=== PATIENT | female | born 1990 | race Caucasian/White ===

== ENCOUNTER → 2020-10-30 17:49 | Outpatient (CLI) | payer MEDICAID, SELFPAY ==
[2020-10-30 18:19] LABS: Basophils % 0.4 % (0.1-2.0); Eosinophils # 0.1 K/mm3 (0.0-0.4); Eosinophils % 1.5 % (0.1-12.0); Hematocrit 43.6 % (37.0-47.0); Hemoglobin 14.3 g/dL (12.2-16.2); Lymphocytes # 2.4 K/mm3 (0.7-4.5); Lymphocytes % 25.1 % (10-50); Mean Corpuscular HGB Conc 32.8 g/dL (31.8-35.4); Mean Corpuscular Hemoglobin 28.3 pg (27.0-31.2); Mean Corpuscular Volume 86.2 fl (81-99); Mean Platelet Volume 8.6 fl (7.4-10.4); Monocytes # 0.7 K/mm3 (0.1-1.0); Monocytes % 7.4 % (1.7-9.3); Neutrophils # 6.2 K/mm3 (1.8-7.8); Neutrophils % 65.6 % (37.0-80.0); Platelet Count 327 K/mm3 (142-424); Red Blood Count 5.05 M/mm3 (4.20-5.40); Red Cell Distribution Width 13.8 % (11.5-17.5); White Blood Count 9.5 K/mm3 (4.8-10.8)
[2020-10-30 19:20] LABS: Alanine Aminotransferase 27 U/L (12-78); Albumin Level 4.9 g/dl (3.5-5.0); Albumin/Globulin Ratio 1.4 (1.1-1.8); Alkaline Phosphatase 90 U/L (38-126); Anion Gap 14.2 mEq/L (5-15); Aspartate Amino Transferase 33 U/L (14-36); Bilirubin,Total 0.4 mg/dl (0.2-1.3); Blood Urea Nitrogen 18 mg/dl (7-17); Calcium 10.3 mg/dl (8.4-10.2); Carbon Dioxide 27 mmol/L (22.0-30.0); Chloride 103 mmol/L (98-107); Chol/HDL Ratio 4.3 (1-3.5); Cholesterol 208 mg/dl (140-200); Estimated Glomerular Filt Rate 117 ml/min (>60); GFR (African American) 142 ML/MIN (>60); Globulin 3.6 g/dL (1.3-3.2); Glucose 86 mg/dl (74-100); HDL Cholesterol 48 mg/dl (40-60); Potassium 4.2 mmoL/L (3.5-5.1); Sodium 140 mmol/L (136-145); Total Protein,Serum 8.5 g/dl (6.3-8.2); Triglycerides 135 mg/dl (30-150); VLDL Cholesterol 27 mg/dL (0-40)
[2020-10-30 19:36] LABS: 25-OH Vitamin D, Total 22.7 ng/mL (30-100)
[2020-10-30 19:37] LABS: Free T4 (Free Thyroxine) 1.08 ng/dl (0.78-2.19)
[2020-10-30 19:51] LABS: Thyroid Stimulating Hormone 1.26 uIU/mL (0.465-4.68)
== END ==
PROVIDERS: Visit Provider Physician Assistant
DX: Z00.00 Encounter for general adult medical examination without abnormal findings (principal); I10 Essential (primary) hypertension; E55.9 Vitamin D deficiency, unspecified; Z79.899 Other long term (current) drug therapy
CPT/HCPCS: 80053; 80061; 82306; 84439; 84443; 85025

== ENCOUNTER → 2020-11-06 08:11 | Outpatient (CLI) | payer MEDICAID, SELFPAY ==
--- NOTE | 2020-11-06 08:11 | US_ITS ---
PROCEDURE: US ABDOMEN LIMITED CLINICAL INDICATION: RUQ pain COMPARISON: No exams were available for comparison FINDINGS: PANCREAS: Unremarkable. No obvious mass or abnormal fluid collection. No ductal dilatation LIVER: No focal liver lesions demonstrated. There is slightly overall increased echogenicity consistent with mild diffuse fatty infiltration.. No intrahepatic biliary ductal dilatation evident. There is appropriate direction of blood flow within a non dilated portal vein RIGHT KIDNEY: The right kidney measures 11.3 x 5.0 by 7.4 cm and appears sonographically normal. GALLBLADDER: The gallbladder is normal in size with normal wall thickness. There is a small amount of biliary sludge but no definite gallstones are seen. The common bile duct is normal in caliber. IMPRESSION: Mild diffuse hepatic steatosis, biliary sludge as noted Dictated by: Dr. Kamar Greenfield MD 11/06/2020 11:23 Dr. Kamar Greenfield MD in [place] 11/06/2020 11:23
== END ==
PROVIDERS: PCP Physician Assistant; Visit Provider Physician Assistant
DX: R10.11 Right upper quadrant pain (principal)
CPT/HCPCS: 76705

== ENCOUNTER → 2020-11-19 10:26 | Outpatient (CLI) | payer OTHER, SELFPAY ==
--- NOTE | 2020-11-19 10:31 | NM_ITS ---
PROCEDURE: NM HEPATOBILIARY W PHARM CLINICAL INDICATION: GB sludge Abdominal pain, nausea, vomiting COMPARISON: US US ABDOMEN LIMITED from 11/06/2020 TECHNIQUE: DOSE: 8.37 mCi technetium Choletec and 1.7 mcg of CCK FINDINGS: Homogeneous activity is present within the hepatic parenchyma. Activity is present in the gallbladder by 9 minutes. Activity is present in the small bowel by 25 minutes. The gallbladder ejection fraction is calculated to be 23 percent. CCK-The patient did not report pain or other symptoms during CCK infusion. IMPRESSION: 1. No evidence of common or cystic duct obstruction. 2. Gallbladder ejection fraction is low at 23 percent with normal greater than 35 percent. Correlation with clinical parameters needed regarding the clinical significance of this finding Dictated by: Addison Peters MD 11/20/2020 09:15 Addison Peters MD in [facility] 11/20/2020 09:15
--- NOTE | 2020-11-19 10:57 | HMH.ITSHM ---
Current Home Medications as stated by this patient Carmel Olivia or personnel representative. []paroxetine NORETHINDRONE VITAMIN D2 VITAMIN D3 DICYCLOMINE ATORVASTATIN
== END ==
PROVIDERS: PCP Physician Assistant; Visit Provider Physician Assistant
DX: K82.8 Other specified diseases of gallbladder (principal)
CPT/HCPCS: 78227; A9537; J2805

== ENCOUNTER 2020-11-20 22:17 | Emergency (ER) | payer OTHER, SELFPAY ==
[2020-11-20 22:09] VITALS: BP 137/87; PULSE 79; RESP 16; TEMP 36.6; O2SAT 100; BMI 30.7
--- NOTE | 2020-11-20 22:16 | CT_ITS ---
PROCEDURE: CT ABDOMEN PELVIS W CON CLINICAL INDICATION: ABD pain Upper quadrant abdominal pain COMPARISON: No exams were available for comparison TECHNIQUE: IV Contrast: 75ML Isovue 370 Oral Contrast None Axial images obtained with sagittal and coronal reformats. All CT scans at the facility use one or more dose reduction, viz: automated exposure control, ma/kV adjustment per patient size (including targeted exams where dose is matched to indication, i.e. head), or iterative reconstruction technique. FINDINGS: LOWER THORAX: There is a nodule in the right lung base at 8 mm. There is mild associated bronchial thickening. ABDOMEN & PELVIS: The liver, gallbladder, spleen, adrenal glands, pancreas have an unremarkable appearance. There are at least 2 punctate calculi the left kidney in the mid polar region measuring 2 and 3 mm. No hydronephrosis. No ureteral calculi. No intestinal obstruction or free air. No evidence of appendicitis or diverticulitis. No acute bony anomaly. IMPRESSION: 1. No acute abdominal or pelvic findings. 2. Punctate nonobstructing left renal calculi 3. Indeterminate 8 mm nodule right lower lobe. Consider 3 month follow-up Dictated by: Addison Peters MD 11/21/2020 05:59 Addison Peters MD in [place] 11/21/2020 05:59
[2020-11-20 22:28] LABS: Microscopic, Urine URINE MICROSCOPIC (MICROSCOPIC)
[2020-11-20 22:31] LABS: Appearance,Urine CLEAR (Clear); Bilirubin,Urine Negative (Negative); Blood, Urine 3+ (Negative); Color,Urine YELLOW (Yellow); Glucose,Urine (UA) Negative (Negative); Ketones,Urine Negative (Negative); Leukocyte Esterase,Urine Negative (Negative); Nitrate,Urine Negative (Negative); Protein,Urine Negative (Negative); Specific Gravity, Urine >= 1.030 (1.005-1.030); Urobilinogen,Urine 0.2 EU/dl (0.2)
[2020-11-20 22:35] LABS: Basophils # 0.1 K/mm3 (0-0.2); Basophils % 0.7 % (0.1-2.0); Eosinophils # 0.3 K/mm3 (0.0-0.4); Hematocrit 41.7 % (37.0-47.0); Hemoglobin 13.4 g/dL (12.2-16.2); Lymphocytes % 22.2 % (10-50); Mean Corpuscular HGB Conc 32.2 g/dL (31.8-35.4); Mean Corpuscular Volume 86.9 fl (81-99); Mean Platelet Volume 7.6 fl (7.4-10.4); Monocytes # 0.6 K/mm3 (0.1-1.0); Monocytes % 4.1 % (1.7-9.3); Neutrophils # 9.6 K/mm3 (1.8-7.8); Platelet Count 345 K/mm3 (142-424); Red Blood Count 4.79 M/mm3 (4.20-5.40); Red Cell Distribution Width 14.1 % (11.5-17.5); White Blood Count 13.5 K/mm3 (4.8-10.8)
[2020-11-20 22:41] LABS: Chloride 102 mmol/L (98-107); Potassium 3.6 mmoL/L (3.5-5.1); Sodium 139 mmol/L (136-145)
[2020-11-20 22:42] LABS: Urine Pregnancy, HCG Qual. Negative (Negative)
[2020-11-20 22:44] LABS: Alanine Aminotransferase 24 U/L (12-78); Albumin/Globulin Ratio 1.4 (1.1-1.8); Alkaline Phosphatase 84 U/L (38-126); Amylase 77 U/L (30-110); Anion Gap 12.6 mEq/L (5-15); Aspartate Amino Transferase 30 U/L (14-36); Bilirubin,Total 0.2 mg/dl (0.2-1.3); Blood Urea Nitrogen 25 mg/dl (7-17); Calcium 9.7 mg/dl (8.4-10.2); Carbon Dioxide 28 mmol/L (22.0-30.0); Creatinine Clearance Estimated 156 mL/min (50-200); Estimated Glomerular Filt Rate 98 ml/min (>60); GFR (African American) 119 ML/MIN (>60); Globulin 3.5 g/dL (1.3-3.2); Glucose 137 mg/dl (74-100); Lipase 88 U/L (23-300); Total Protein,Serum 8.5 g/dl (6.3-8.2)
[2020-11-20 22:49] LABS: C-Reactive Protein 10.4 mg/L (0-4)
[2020-11-20 23:10] LABS: Amorphous Sediment,Urine 1+ /lpf; Bacteria,Urine 1+ /lpf; Mucus,Urine 1+ /lpf
[2020-11-20 23:11] LABS: Erythrocyte Sedimentation Rate 16 mm/hr (0-20)
--- NOTE | 2020-11-20 23:46 | HMH.EDNVD ---
ED Disposition Clinical Impression: Gallbladder attack, Obesity (BMI 30.0-34.9) Disposition: Home, Self-Care Condition on Discharge: Good Instructions: DI for General Gallbladder Conditions Additional Instructions: call pcp for follow up and keep appt with surg Referrals: Julita Alexander PA [Primary Care Provider] - - Critical Care Critical Care Time: No Attestation: On 11/20/20, the high probability of a clinically significant, sudden or life threatening deterioration of the following system(s) required my full and direct attention, intervention and personal management. The time I documented below is in addition to time spent performing reported procedures but includes the following listed in this critical care notation. Medical Decision Making - Medical Records Medical records reviewed: Yes: I reviewed the patient's medical records. - Jaime Inquiry Pt receiving controlled substance: No Vital Signs: 11/20/20 22:09 Temperature 97.8 F Temperature Source Oral Pulse Rate [Left Radial] 79 Respiratory Rate 16 Blood Pressure [Right Arm] 137/87 Blood Pressure Mean [Right Arm] 103 Blood Pressure Source [Right Arm] Automatic Cuff Blood Pressure Position [Right Arm] Supine 02 Sat by Pulse Oximetry 100 Oxygen Delivery Method Room Air - Lab Data Lab results reviewed: Yes: I reviewed the patient's lab results. Lab Results 11/20/20 22:20: Urine Color Yellow, Urine Appearance Clear, Urine pH 6.0, Ur Specific [place] >= 1.030, Urine Protein Negative, Urine Glucose (UA) Negative, Urine Ketones Negative, Urine Blood 3+, Urine Nitrate Negative, Urine Bilirubin Negative, Urine Urobilinogen 0.2, Ur Leukocyte Esterase Negative, Urine RBC 10-20, Urine WBC 5-10, Ur Squamous Epith Cells 3-5, Amorphous Sediment 1+, Urine Bacteria 1+, Urine Mucus 1+ 11/20/20 22:20: Urine HCG, Qual Negative 11/20/20 22:25: WBC 13.5 H, RBC 4.79, Hgb 13.4, Hct 41.7, MCV 86.9, MCH 28.0, MCHC 32.2, RDW 14.1, Plt Count 345, MPV 7.6, Neut % (Auto) 71.0, Lymph % (Auto) 22.2, [place] % (Auto) 4.1, Eos % (Auto) 2.0, Baso % (Auto) 0.7, Neut # (Auto) 9.6 H, Lymph # (Auto) 3.0, [place] # (Auto) 0.6, Eos # (Auto) 0.3, Baso # (Auto) 0.1, ESR 16 11/20/20 22:25: Sodium 139, Potassium 3.6, Chloride 102, Carbon Dioxide 28, Anion Gap 12.6, BUN 25 H, Creatinine 0.70, Estimated Creat Clear 156, Estimated GFR 98, Est GFR ( Amer) 119, Glucose 137 H, Calcium 9.7, Total Bilirubin 0.2, AST 30, ALT 24, Alkaline Phosphatase 84, C-Reactive Protein 10.4 H, Total Protein 8.5 H, Albumin 5.0, Globulin 3.5 H, Albumin/Globulin Ratio 1.4, Amylase 77, Lipase 88 Result diagrams: 11/20/20 22:25 11/20/20 22:25 Orders (Tests/Meds): ED MEDICATIONS Generic Name Dose Route Start Last Admin Trade Name Freq PRN Reason Stop Dose Admin Sodium Chloride 1,000 mls @ 999 mls/hr 11/20/20 22:30 11/20/20 22:52 Sod Chlor 0.9% 1000ml Bag IV 11/20/20 23:30 999 mls/hr .Q1H1M INGRID Administration Discontinued Medications Generic Name Dose Route Start Last Admin Trade Name Freq PRN Reason Stop Dose Admin Iopamidol 75 ml 11/20/20 23:31 11/20/20 23:32 Iopamidol-370 (76%);100ml Bottle IV 11/20/20 23:32 75 ml ONCE ONE Administration Ketorolac Tromethamine 30 mg 11/20/20 22:16 11/20/20 22:52 Ketorolac 30mg/Ml Vial IV 11/20/20 22:17 30 mg ONCE ONE Administration Ondansetron HCl 4 mg 11/20/20 22:16 11/20/20 22:52 Ondansetron 4mg/2ml Vial IV 11/20/20 22:17 4 mg ONCE ONE Administration Sodium Chloride 10 ml 11/20/20 23:31 11/20/20 23:32 Sodium Chloride 0.9% 10ml Syr (Rad Only) IV 11/20/20 23:32 10 ml ONCE ONE Administration ORDERS Category Date Time Status CT abdomen pelvis w con Stat Cat Scan 11/20/20 22:16 Taken - CT Data CT Scan: Abdomen, Pelvis Time Received: 00:[address] Reviewed: Yes: I have viewed the radiologist's interpretation Preliminary Findings: Normal/NAD - Reevaluation(s) Time: 00:29 Reevaluation #1:
[2020-11-21 00:47] VITALS: BP 130/76; PULSE 74; RESP 16; TEMP 36.7; O2SAT 100
== END 2020-11-21 00:48 | disposition home or self-care (01) ==
PROVIDERS: Emergency Provider Emergency Medicine; PCP Physician Assistant
DX: K82.9 Disease of gallbladder, unspecified (principal); I10 Essential (primary) hypertension; F41.9 Anxiety disorder, unspecified; E66.9 Obesity, unspecified; Z68.30 Body mass index [BMI] 30.0-30.9, adult; Z79.899 Other long term (current) drug therapy
CPT/HCPCS: 74177; 80053; 81001; 81025; 82150; 83690; 85025; 85651; 86140; 96365; 96375; 99283; J2405; Q9967

== ENCOUNTER → 2020-12-19 10:30 | Outpatient (CLI) | payer OTHER, SELFPAY ==
[2020-12-19 10:51] LABS: Basophils % 0.4 % (0.1-2.0); Eosinophils # 0.2 K/mm3 (0.0-0.4); Eosinophils % 2.2 % (0.1-12.0); Hematocrit 41.4 % (37.0-47.0); Hemoglobin 13.3 g/dL (12.2-16.2); Lymphocytes % 24.1 % (10-50); Mean Corpuscular HGB Conc 32.2 g/dL (31.8-35.4); Mean Corpuscular Hemoglobin 27.7 pg (27.0-31.2); Mean Corpuscular Volume 85.8 fl (81-99); Mean Platelet Volume 7.5 fl (7.4-10.4); Monocytes # 0.4 K/mm3 (0.1-1.0); Neutrophils # 5.6 K/mm3 (1.8-7.8); Neutrophils % 68.3 % (37.0-80.0); Platelet Count 291 K/mm3 (142-424); Red Blood Count 4.82 M/mm3 (4.20-5.40); White Blood Count 8.2 K/mm3 (4.8-10.8)
[2020-12-19 11:11] LABS: Urine Pregnancy, HCG Qual. Negative (Negative)
[2020-12-19 12:43] LABS: Coronavirus 19 IgG Antibody Negative (Negative); Coronavirus 19 IgM Antibody Negative (Negative)
== END ==
PROVIDERS: Visit Provider Surgery
DX: Z01.818 Encounter for other preprocedural examination (principal); Z20.822 Contact with and (suspected) exposure to COVID-19; K82.9 Disease of gallbladder, unspecified
CPT/HCPCS: 36415; 81025; 85025; 86328

== ENCOUNTER 2020-12-21 05:57 | Day surgery (SDC) | payer OTHER, SELFPAY ==
[2020-12-21] VITALS (11 sets, daily range): BP systolic 122–153; BP diastolic 71–83; PULSE 93–118; RESP 16–18; TEMP 6.1–43; O2SAT 95–100; BMI 34.0
[2020-12-21 06:29] LABS: Urine Pregnancy, HCG Qual. Negative (Negative)
--- NOTE | 2020-12-21 07:00 | P.PN_ITS ---
[facility] Anesthesia Checklist - Structural Data Admitted From: Home Planned Operative Procedure/s: duncan argueta Consent for Planned Operative Procedure(s) Verified: Yes - Additional verifications Anesthesia Reactions: No Hx Blood Transfusions: No - Airway Assessment C-Spine Mobility Assessed: Yes TMJ Mobility Assessed: Yes Dentition: Good Dentition - Neurological Assessment Level of Consciousness: Awake, Alert, Appropriate - Anesthesia Plan Anesthesia Risk discussed: Yes Anesthesia Plan: Verified ASA Class: II Anesthesia Type: General [facility] History I have reviewed the patient's past medical history: Yes Medical History: Reports:: Anxiety Denies:: Cancer, Diabetes Mellitus Type 1, Diabetes Mellitus Type 2, MRSA, Seizures *Have you ever received a pneumonia vaccine?: No *Have you received a flu vaccine this season?: No Anesthesia experience/problems:: none Other Surgeries: Yes: No Previous Surgery Amputation: No Fractures: No - *Social History Smoking Status: Never smoker Alcohol Intake: never Substance Use Type: denies use *Occupational Status:: disabled *Travel in the last 8 weeks: None - Psychiatric History Pschychiatric History:: Reports:: Anxiety Family Hx:: Diabetes
--- NOTE | 2020-12-21 08:03 | HMH.OPNOTE ---
Date of procedure: 12/21/20 Pre-op Diagnosis:: Biliary dyskinesia Post-op Diagnosis:: Same Procedure performed:: Laparoscopic cholecystectomy Surgeon:: Malachi Claire MD [employer] Supervisor(s):: Vania FIELD SERVICE TECHNICIAN:: Serge Riojas Anesthesia: GETA Estimated blood loss (mL): 10 Operative findings:: Mild gallbladder distention Operative note:: After informed consent was obtained, the patient was taken to the operating room and placed in the supine position. General anesthesia was induced and the abdomen was prepped and draped in a sterile fashion. After infiltration with local anesthetic an infraumbilical incision was made. A Veress needle was placed in position. The abdomen was insufflated. A 5 mm optical trocar was placed in position. Under direct visualization, a 12 mm trocar was placed in the subxiphoid position and 2 additional 5 mm trocars were placed in the right upper quadrant. The gallbladder was elevated up and over the liver margin. The tissue around the cystic duct was carefully dissected. 3 clips were placed proximally and the duct was transected with harmonic michelle. Harmonic michelle were then utilized to dissect the gallbladder away from the liver margin with careful attention to the control of the cystic artery. The gallbladder was placed in a retrieval bag and removed through the subxiphoid trocar site. The right upper quadrant was thoroughly irrigated. No active bleeding or bile leak was noted. Fascia at the subxiphoid trocar site was reapproximated utilizing the NeoClose device. The remaining trocars were removed. All wounds were irrigated and skin was closed with 4-0 Monocryl in a subcuticular fashion. Steri-Strips were applied. The patient's anesthetic agents were reversed and extubation was completed prior to transfer to recovery in stable condition. Condition: stable Disposition: PACU Specimens:: Gallbladder Complications:: No immediate
--- NOTE | 2020-12-21 08:18 | P.PN_ITS ---
[facility] Anesthesia Record Part I Intake, IV Amount: 800 Estimated blood loss (mL): 10 Urine output (mL): 0 Blood Pressure: 153/83 SaO2: 95 Pulse Rate: 110 Respiratory Rate: 16 Temperature: 97.7 F Patient is:: Drowsy, Stable Stable to PACU at:: 08:15
--- NOTE | 2020-12-21 09:26 | HMH.ANESII ---
[facility] Anesthesia Record Part II Discharge Time: 08:45 Destination: Surgical Day Care (OP Surgery) PACU nurse assessment reviewed?: Yes Patient Condition:: Good Anesthesia Complications:: None Swallowing reflex intact?: Yes Cyanosis?: No Blood Pressure: 126/80 Pulse Rate: 96 Temperature: 97.8 F Mental Status: Alert & Oriented Pain level:: 2 Nausea and/or vomitting:: None Intake, IV Amount: 0
== END 2020-12-21 09:13 | disposition home or self-care (01) ==
LOC: OR 05:58
PROVIDERS: PCP Physician Assistant; Visit Provider Surgery
PROC: 0FT44ZZ Resection of Gallbladder, Percutaneous Endoscopic Approach (ICD-10-PCS; CPT 47562; principal; 2020-12-21 07:30)
DX: K82.8 Other specified diseases of gallbladder (principal); F41.9 Anxiety disorder, unspecified; Z83.3 Family history of diabetes mellitus; Z79.899 Other long term (current) drug therapy
CPT/HCPCS: 47562; 81025; 96374; J2405; J2710

== ENCOUNTER 2020-12-25 13:04 | Emergency (ER) | payer OTHER, SELFPAY ==
[2020-12-25 13:05] VITALS: BP 132/98; PULSE 108; RESP 18; TEMP 37; O2SAT 98; BMI 28.8
--- NOTE | 2020-12-25 13:18 | XR_ITS ---
PROCEDURE: XR CHEST PORTABLE CLINICAL HISTORY: upright, look for air under diaphragm Recent cholecystectomy. No lung surgery. Nonsmoker COMPARISON: No exams were available for comparison FINDINGS: The lungs are well expanded and clear without infiltrate pulmonary edema or pleural effusion. Cardiac and mediastinal contours are within normal limits. Bony structures have a normal x-ray appearance. There is no free air below the diaphragm. IMPRESSION: No intraperitoneal free air below the diaphragm by x-ray. Dictated by: Joya Fernandez 12/25/2020 13:46 Joya Fernandez in [place] 12/25/2020 13:46
--- NOTE | 2020-12-25 13:20 | PC.NURSE ---
notified rad of orders on pt
--- NOTE | 2020-12-25 13:22 | XR_ITS ---
PROCEDURE: XR KUB CLINICAL INDICATION: abd pain Abdominal pain, recent cholecystectomy COMPARISON: CT CT ABDOMEN PELVIS W CON from 11/20/2020 FINDINGS: There are surgical clips from prior cholecystectomy. Surgical wire projects over the lower abdomen. The upper abdomen including the diaphragm is not visualized on this single abdominal x-ray. There are no dilated loops of bowel. Bowel gas pattern is normal. Renal shadows are visible. No obvious nephrolithiasis or ureteral stone. IMPRESSION: Normal bowel gas pattern without evidence of ileus or obstruction. Upper abdomen and diaphragm not included in this image which does not allow for evaluation for free air by x-ray. Dictated by: Joya Fernandez 12/25/2020 14:27 Joya Fernandez in [place] 12/25/2020 14:27
--- NOTE | 2020-12-25 13:22 | HMH.EDGENADL ---
ED Disposition Clinical Impression: Upper abdominal pain Constipation Qualifiers: Constipation type: unspecified constipation type Qualified Code(s): K59.00 - Constipation, unspecified Disposition: Home, Self-Care Condition on Discharge: Good Instructions: DI for Abdominal Pain-Adult, DI for Constipation Additional Instructions: You have been evaluated for abdominal pain. This could be due to recent surgery or constipation. Please follow-up with your general surgeon as soon as available. Follow-up with your primary care doctor in the next 1 to 2 days. Take MiraLAX to have soft bowel movements every day. Take Bentyl if needed for cramps. Return to the emergency department for any new or worsening symptoms, pain, vomiting. Prescriptions: Dicyclomine HCl [Bentyl 10mg capsule] 10 mg PO QID PRN #12 cap PRN Reason: Cramping Transmission Status: Received by [facility] polyethylene glycoL 3350 [Miralax 17gm Packet] 17 gm PO DAILY #30 packet Transmission Status: Received by [facility] Referrals: Julita Alexander PA [Primary Care Provider] - Malachi Claire MD [Staff Physician] - Time of Disposition: 14:18 - Critical Care Critical Care Time: No Attestation: On 12/25/20, the high probability of a clinically significant, sudden or life threatening deterioration of the following system(s) required my full and direct attention, intervention and personal management. The time I documented below is in addition to time spent performing reported procedures but includes the following listed in this critical care notation. Medical Decision Making - Medical Records Medical records reviewed: Yes: I reviewed the patient's medical records. - Jaime Inquiry Pt receiving controlled substance: No Vital Signs: 12/25/20 13:05 12/25/20 13:40 12/25/20 14:07 Temperature 98.6 F Temperature Source Oral Pulse Rate Pulse Rate [Right Radial] 108 H 104 H 122 H Respiratory Rate 18 Blood Pressure Blood Pressure [Right Arm] 132/98 H 129/90 161/82 H Blood Pressure Mean [Right Arm] 109 103 108 Blood Pressure Source [Right Arm] Automatic Cuff Automatic Cuff Automatic Cuff Blood Pressure Position [Right Arm] Sitting Sitting Sitting 02 Sat by Pulse Oximetry 98 96 99 Oxygen Delivery Method Room Air Room Air Room Air 12/25/20 14:36 Temperature 98.6 F Temperature Source Pulse Rate 122 H Pulse Rate [Right Radial] Respiratory Rate 18 Blood Pressure 161/82 H Blood Pressure [Right Arm] Blood Pressure Mean [Right Arm] Blood Pressure Source [Right Arm] Blood Pressure Position [Right Arm] 02 Sat by Pulse Oximetry Oxygen Delivery Method Room Air - Lab Data Lab Results 12/25/20 13:25: WBC 10.3, RBC 4.98, Hgb 13.8, Hct 42.6, MCV 85.6, MCH 27.8, MCHC 32.5, RDW 14.4, Plt Count 310, MPV 7.6, Neut % (Auto) 73.5, Lymph % (Auto) 19.1, Hand % (Auto) 5.1, Eos % (Auto) 2.0, Baso % (Auto) 0.3, Neut # (Auto) 7.6, Lymph # (Auto) 2.0, Hand # (Auto) 0.5, Eos # (Auto) 0.2, Baso # (Auto) 0.0 12/25/20 13:25: Sodium 138, Potassium 4.5, Chloride 103, Carbon Dioxide 28, Anion Gap 11.5, BUN 15, Creatinine 0.60, Estimated Creat Clear 176, Estimated GFR 117, Est GFR ( Amer) 142, Glucose 97, Calcium 9.7, Total Bilirubin 0.4, AST 28, ALT 37, Alkaline Phosphatase 78, Total Protein 8.7 H, Albumin 4.9, Globulin 3.8 H, Albumin/Globulin Ratio 1.3, Lipase 54 Result diagrams: 12/25/20 13:25 12/25/20 13:25 Orders (Tests/Meds): ED MEDICATIONS Discontinued Medications Generic Name Dose Route Start Last Admin Trade Name Freq PRN Reason Stop Dose Admin Dicyclomine HCl 20 mg 12/25/20 14:07 12/25/20 14:13 Dicyclomine 10mg Capsule PO 12/25/20 14:08 20 mg ONCE ONE Administration Medical Decision Narrative: In summary this is a 30-year-old female 4 days postop from a laparoscopic cholecystectomy presenting to the emergency department with epigastric pain and bloating. Patient is tachycardic to 1
[2020-12-25 13:37] LABS: Chloride 103 mmol/L (98-107); Potassium 4.5 mmoL/L (3.5-5.1); Sodium 138 mmol/L (136-145)
[2020-12-25 13:39] LABS: Basophils % 0.3 % (0.1-2.0); Blood Urea Nitrogen 15 mg/dl (7-17); Creatinine Clearance Estimated 176 mL/min (50-200); Eosinophils # 0.2 K/mm3 (0.0-0.4); Estimated Glomerular Filt Rate 117 ml/min (>60); Hematocrit 42.6 % (37.0-47.0); Hemoglobin 13.8 g/dL (12.2-16.2); Lymphocytes % 19.1 % (10-50); Mean Corpuscular HGB Conc 32.5 g/dL (31.8-35.4); Mean Corpuscular Hemoglobin 27.8 pg (27.0-31.2); Mean Corpuscular Volume 85.6 fl (81-99); Mean Platelet Volume 7.6 fl (7.4-10.4); Monocytes # 0.5 K/mm3 (0.1-1.0); Monocytes % 5.1 % (1.7-9.3); Neutrophils # 7.6 K/mm3 (1.8-7.8); Neutrophils % 73.5 % (37.0-80.0); Platelet Count 310 K/mm3 (142-424); Red Blood Count 4.98 M/mm3 (4.20-5.40); Red Cell Distribution Width 14.4 % (11.5-17.5); White Blood Count 10.3 K/mm3 (4.8-10.8)
[2020-12-25 13:40] VITALS: BP 129/90; PULSE 104; O2SAT 96
[2020-12-25 13:40] LABS: Alanine Aminotransferase 37 U/L (12-78); Albumin Level 4.9 g/dl (3.5-5.0); Albumin/Globulin Ratio 1.3 (1.1-1.8); Alkaline Phosphatase 78 U/L (38-126); Anion Gap 11.5 mEq/L (5-15); Aspartate Amino Transferase 28 U/L (14-36); Bilirubin,Total 0.4 mg/dl (0.2-1.3); Calcium 9.7 mg/dl (8.4-10.2); Carbon Dioxide 28 mmol/L (22.0-30.0); GFR (African American) 142 ML/MIN (>60); Globulin 3.8 g/dL (1.3-3.2); Glucose 97 mg/dl (74-100); Lipase 54 U/L (23-300); Total Protein,Serum 8.7 g/dl (6.3-8.2)
[2020-12-25 14:07] VITALS: BP 161/82; PULSE 122; O2SAT 99
[2020-12-25 14:36] VITALS: BP 161/82; PULSE 122; RESP 18; TEMP 37; O2SAT 99
== END 2020-12-25 14:36 | disposition home or self-care (01) ==
PROVIDERS: Emergency Provider Emergency Medicine; PCP Physician Assistant
DX: G89.18 Other acute postprocedural pain (principal); R10.13 Epigastric pain; F41.9 Anxiety disorder, unspecified
CPT/HCPCS: 71045; 74018; 80053; 83690; 85025; 99283

== ENCOUNTER → 2021-02-08 08:48 | Outpatient (CLI) | payer OTHER, SELFPAY ==
--- NOTE | 2021-02-08 08:48 | FL_ITS ---
PROCEDURE: FL BARIUM SWALLOW CLINICAL INDICATION: dysphagia COMPARISON: No exams were available for comparison TECHNIQUE: In the upright position the patient was observed to swallow barium in both the AP and lateral view. The cervical esophagus was examined under fluoroscopy with images obtained. The patient was then placed prone in the right anterior oblique position and was observed to swallow barium with Valsalva technique . FLUOROSCOPY TIME: 38 seconds FINDINGS: There was no evidence of aspiration. There was normal peristalsis. No filling defects or mucosal abnormalities. No masses or strictures. There is small hiatus hernia. Moderate gastroesophageal reflux up to the level of mid esophagus noted. IMPRESSION: Small hiatus hernia. Moderate gastroesophageal reflux. Dictated by: Shanthi Moura 02/08/2021 12:52 Shanthi Moura in [place] 02/08/2021 12:52
== END ==
PROVIDERS: PCP Family Medicine; Visit Provider Nurse Practitioner Family
DX: R13.10 Dysphagia, unspecified (principal)
CPT/HCPCS: 74220

== ENCOUNTER → 2021-02-22 13:50 | Outpatient (CLI) | payer OTHER, SELFPAY | PROVIDERS: Visit Provider Nurse Practitioner Family | DX: N39.0 Urinary tract infection, site not specified (principal) | CPT/HCPCS: 87086 ==

== ENCOUNTER → 2021-04-20 09:10 | Outpatient (CLI) | payer OTHER, SELFPAY ==
[2021-04-20 11:15] LABS: HCG Qualitative, Serum Negative (Negative)
== END ==
PROVIDERS: Visit Provider Internal Medicine Gastroenterology
DX: Z01.812 Encounter for preprocedural laboratory examination (principal); Z11.52 Encounter for screening for COVID-19; Z13.810 Encounter for screening for upper gastrointestinal disorder; R13.10 Dysphagia, unspecified
CPT/HCPCS: 84703; U0003

== ENCOUNTER 2021-04-22 07:13 | Day surgery (SDC) | payer OTHER, SELFPAY ==
[2021-04-17 11:44] VITALS: BMI 30.2
[2021-04-22] VITALS (7 sets, daily range): BP systolic 107–150; BP diastolic 61–89; PULSE 78–105; RESP 16–20; TEMP 36.1–36.4; O2SAT 95–98
--- NOTE | 2021-04-22 08:34 | HMH.PROC ---
[facility] Procedure Note Procedure Note:: Upper Endoscopy Procedure Report: Esophagogastroduodenoscopy with cold biopsies and TTS balloon dilation Endoscopost: Luis Manuel Degroot II, MD Referring Physician: SAL Boyd Date of Procedure: April 22, 2021 Equipment: Olympus GIF 190 standard upper endoscope Sedation: MAC sedation Indications: Mrs. Olivia is a 31-year-old female who was recently having globus sensation and some dysphagia. She does have chronic intermittent dyspepsia with abdominal discomfort, bloating, belching, nausea and early satiety. This does come and go. She does have some bowel irregularity. She reports some heartburn but is not on any PPI therapy. This is her first upper endoscopy. Procedure: Prior to the procedure, a history and physical exam was performed, and patient's medications and allergies were reviewed. The risks, benefits and alternatives of the sedation and procedure were discussed with the patient. All questions were answered and informed consent was obtained. The patient was brought to the procedure room. Patient identification and proposed procedure were verified by the physician and the nurse. The patient was placed in a left lateral decubitus position and the scope was passed under direct vision. Throughout the procedure, the patient's blood pressure, pulse, and oxygen saturations were monitored continuously. The upper GI endoscopy was accomplished without difficulty. The patient tolerated the procedure well. Findings: The scope was passed directly into the upper esophagus and advanced to the third portion of the duodenum. The post bulbar duodenum and duodenal bulb were normal with normal mucosa and conniventes. Cold biopsies were taken from the post bulbar duodenum to rule out celiac disease. The scope was withdrawn through a normal duodenal bulb and pylorus into the stomach. There was bile reflux with mild to moderate linear reactive gastropathy of the antrum and body of the stomach. The remainder of the fundus of the stomach was grossly normal. Upon retroflexion there was no hiatal hernia. 2 biopsies were taken in the antrum and along the lesser curvature for histology to rule out gastritis and/or H pylori. The scope was then withdrawn into the esophagus. There was a serrated Z-line. There was no evidence of reflux esophagitis, Dejesus's or Schatzki's ring. There were tertiary contractions and evidence of mild to moderate esophageal dysmotility. The entire esophagus was dilated to 60 Welsh/20 mm with a TTS hydrostatic balloon. There was mild resistance at the cricopharyngeus. The remainder of the esophageal mucosa was normal. Impression: 1. Cricopharyngeal spasm status post dilation to 20 mm 2. Nonerosive GERD with mild to moderate esophageal dysmotility 3. Bile reflux with mild to moderate linear reactive gastropathy Plan: I will follow-up the biopsies. The patient does have some functional dyspepsia and functional GERD with esophageal dysmotility and spasm. I do feel that this is multifactorial. We will discussed dietary measures, fiber bowel regimen and treatment options. She is clinically improved.
--- NOTE | 2021-04-22 08:39 | P.PN_ITS ---
[facility] Anesthesia Checklist - Patient Identification Patient Identification: Arm Band - Structural Data Admitted From: Home Planned Operative Procedure/s: egd Consent for Planned Operative Procedure(s) Verified: Yes Verified Documents: Surgical Consent, History and Physical - NPO Status Verified Time NPO: 00:00 - Additional verifications Anesthesia Reactions: No Hx Blood Transfusions: No - Airway Assessment C-Spine Mobility Assessed: Yes (mp2) TMJ Mobility Assessed: Yes Dentition: Good Dentition - Neurological Assessment Level of Consciousness: Awake, Alert - Anesthesia Plan Anesthesia Risk discussed: Yes Anesthesia Plan: Verified ASA Class: II Anesthesia Type: MAC [facility] History I have reviewed the patient's past medical history: Yes Medical History: Reports:: Anxiety, Hyperlipidemia Denies:: Cancer, Diabetes Mellitus Type 1, Diabetes Mellitus Type 2, Internal Pacemaker, MRSA, Seizures *Have you ever received a pneumonia vaccine?: No *Have you received a flu vaccine this season?: No Anesthesia experience/problems:: nac Other Surgeries: Yes: Cholecystectomy. No: Pacemaker Amputation: No Fractures: No - *Social History Last grade of school completed: High school graduate Smoking Status: Never smoker Alcohol Intake: never Substance Use Type: denies use *Occupational Status:: disabled Housing: house Household Members: family, friend(s) *Travel in the last 8 weeks: None - Psychiatric History Pschychiatric History:: Reports:: Anxiety Family Hx:: Diabetes
== END 2021-04-22 09:32 | disposition home or self-care (01) ==
LOC: OUTP 07:15
PROVIDERS: PCP Nurse Practitioner Family; Visit Provider Internal Medicine Gastroenterology
PROC: 0DJ08ZZ Inspection of Upper Intestinal Tract, Via Natural or Artificial Opening Endoscopic (ICD-10-PCS; CPT 43235; principal; 2021-04-22 08:30)
DX: J39.2 Other diseases of pharynx (principal); K21.9 Gastro-esophageal reflux disease without esophagitis; K22.4 Dyskinesia of esophagus; K31.9 Disease of stomach and duodenum, unspecified; F41.9 Anxiety disorder, unspecified; E78.5 Hyperlipidemia, unspecified; Z83.3 Family history of diabetes mellitus; I10 Essential (primary) hypertension; Z79.899 Other long term (current) drug therapy
CPT/HCPCS: 43239; 43249; C1726

== ENCOUNTER → 2021-04-24 17:54 | Outpatient (CLI) | payer OTHER, SELFPAY ==
[2021-04-24 21:38] LABS: Amphetamine/Metha Screen,Urine Negative ng/ml (<1000)
[2021-04-24 21:39] LABS: Barbiturates Screen,Urine Negative ng/ml (<200)
[2021-04-24 21:41] LABS: Benzodiazepines Screen,Urine Negative ng/ml (<200); Cannabinoid Screen,Urine Negative ng/ml (<50)
[2021-04-24 21:42] LABS: Cocaine Screen,Urine Negative ng/ml (<300); Methadone Screen,Urine Negative ng/ml (<300)
[2021-04-24 21:43] LABS: Opiate Screen,Urine Negative ng/ml (<300)
[2021-04-24 21:44] LABS: Phencyclidine Screen,Urine Negative ng/ml (<25)
== END ==
PROVIDERS: Visit Provider Emergency Medicine
DX: Z79.899 Other long term (current) drug therapy (principal)
CPT/HCPCS: 80305

== ENCOUNTER → 2021-05-13 13:38 | Outpatient (CLI) | payer OTHER, SELFPAY ==
[2021-05-13 14:23] LABS: Amphetamine/Metha Screen,Urine Negative ng/ml (<1000)
[2021-05-13 14:24] LABS: Barbiturates Screen,Urine Negative ng/ml (<200); Benzodiazepines Screen,Urine Negative ng/ml (<200)
[2021-05-13 14:25] LABS: Cannabinoid Screen,Urine Negative ng/ml (<50)
[2021-05-13 14:26] LABS: Cocaine Screen,Urine Negative ng/ml (<300)
[2021-05-13 14:27] LABS: Methadone Screen,Urine Negative ng/ml (<300); Opiate Screen,Urine Negative ng/ml (<300)
[2021-05-13 14:29] LABS: Phencyclidine Screen,Urine Negative ng/ml (<25)
== END ==
PROVIDERS: Visit Provider Emergency Medicine
DX: Z79.899 Other long term (current) drug therapy (principal)
CPT/HCPCS: 80305

== ENCOUNTER → 2021-06-25 14:02 | Outpatient (CLI) | payer OTHER, SELFPAY ==
[2021-06-25 15:29] LABS: Amphetamine/Metha Screen,Urine Positive ng/ml (<1000)
[2021-06-25 15:30] LABS: Barbiturates Screen,Urine Negative ng/ml (<200); Benzodiazepines Screen,Urine Negative ng/ml (<200)
[2021-06-25 15:31] LABS: Cannabinoid Screen,Urine Negative ng/ml (<50)
[2021-06-25 15:32] LABS: Cocaine Screen,Urine Negative ng/ml (<300); Methadone Screen,Urine Negative ng/ml (<300)
[2021-06-25 15:33] LABS: Opiate Screen,Urine Negative ng/ml (<300)
[2021-06-25 15:34] LABS: Phencyclidine Screen,Urine Negative ng/ml (<25)
== END ==
PROVIDERS: Visit Provider Emergency Medicine
DX: Z79.899 Other long term (current) drug therapy (principal)
CPT/HCPCS: 80305

== ENCOUNTER → 2021-07-31 17:06 | Outpatient (CLI) | payer OTHER, SELFPAY ==
[2021-07-31 19:15] LABS: Amphetamine/Metha Screen,Urine Positive ng/ml (<1000)
[2021-07-31 19:16] LABS: Barbiturates Screen,Urine Negative ng/ml (<200); Benzodiazepines Screen,Urine Negative ng/ml (<200)
[2021-07-31 19:17] LABS: Cannabinoid Screen,Urine Negative ng/ml (<50); Cocaine Screen,Urine Negative ng/ml (<300)
[2021-07-31 19:18] LABS: Methadone Screen,Urine Negative ng/ml (<300)
[2021-07-31 19:19] LABS: Opiate Screen,Urine Negative ng/ml (<300); Phencyclidine Screen,Urine Negative ng/ml (<25)
== END ==
PROVIDERS: Visit Provider Emergency Medicine
DX: Z79.899 Other long term (current) drug therapy (principal)
CPT/HCPCS: 80305

== ENCOUNTER → 2021-10-15 11:46 | Outpatient (CLI) | payer OTHER, SELFPAY ==
[2021-10-15 12:16] LABS: Basophils # 0.1 K/mm3 (0-0.2); Basophils % 0.6 % (0.1-2.0); Eosinophils # 0.1 K/mm3 (0.0-0.4); Eosinophils % 1.2 % (0.1-12.0); Hematocrit 39.4 % (37.0-47.0); Hemoglobin 13.6 g/dL (12.2-16.2); Lymphocytes # 2.1 K/mm3 (0.7-4.5); Lymphocytes % 17.8 % (10-50); Mean Corpuscular HGB Conc 34.5 g/dL (31.8-35.4); Mean Corpuscular Hemoglobin 30.2 pg (27.0-31.2); Mean Corpuscular Volume 87.5 fl (81-99); Mean Platelet Volume 8.2 fl (7.4-10.4); Monocytes # 0.4 K/mm3 (0.1-1.0); Monocytes % 3.4 % (1.7-9.3); Neutrophils # 8.8 K/mm3 (1.8-7.8); Neutrophils % 76.9 % (37.0-80.0); Platelet Count 358 K/mm3 (142-424); Red Cell Distribution Width 13.3 % (11.5-17.5); White Blood Count 11.5 K/mm3 (4.8-10.8)
[2021-10-15 12:52] LABS: Alanine Aminotransferase 19 U/L (12-78); Albumin Level 4.4 g/dl (3.5-5.0); Albumin/Globulin Ratio 1.4 (1.1-1.8); Alkaline Phosphatase 95 U/L (38-126); Anion Gap 9.8 mEq/L (5-15); Aspartate Amino Transferase 26 U/L (14-36); Blood Urea Nitrogen 11 mg/dl (7-17); Calcium 9.5 mg/dl (8.4-10.2); Carbon Dioxide 25 mmol/L (22.0-30.0); Chloride 106 mmol/L (98-107); Chol/HDL Ratio 2.8 (1-3.5); Cholesterol 142 mg/dl (140-200); Estimated Glomerular Filt Rate 117 ml/min (>60); GFR (African American) 141 ML/MIN (>60); Globulin 3.1 g/dL (1.3-3.2); Glucose 80 mg/dl (74-100); HDL Cholesterol 50 mg/dl (40-60); Potassium 3.8 mmoL/L (3.5-5.1); Sodium 137 mmol/L (136-145); Total Protein,Serum 7.5 g/dl (6.3-8.2); Triglycerides 96 mg/dl (30-150); VLDL Cholesterol 19 mg/dL (0-40)
[2021-10-15 12:55] LABS: Bilirubin,Total < 0.1 mg/dl (0.2-1.3)
[2021-10-15 13:02] LABS: Direct LDL Cholesterol 85.25 mg/dL (100-129)
[2021-10-15 13:10] LABS: 25-OH Vitamin D, Total 22.4 ng/mL (30-100); T4 (Thyroxine) 13.1 ug/dl (5.53-11.0)
[2021-10-15 13:23] LABS: Thyroid Stimulating Hormone 1.08 uIU/mL (0.465-4.68)
== END ==
PROVIDERS: Visit Provider Nurse Practitioner Family
DX: R53.83 Other fatigue (principal); E55.9 Vitamin D deficiency, unspecified; Z79.899 Other long term (current) drug therapy
CPT/HCPCS: 36415; 80053; 80061; 82306; 84436; 84443; 85025